=== PATIENT | female | born 1985 | race Caucasian/White ===

== ENCOUNTER 2017-10-24 16:55 | Emergency (ER) | payer MEDICAID ==
[~2017-10-24] VITALS: Ht 142.2 cm; Wt 65.8 kg
[2017-10-24 17:11] VITALS: Ht 142.2 cm; Wt 65.8 kg
[2017-10-24 18:30] LABS: BASOPHIL % 0.3 % (0-2); PLATELET COUNT 252 x10^3mcL (130-400)
[2017-10-24 19:17] VITALS: BP 120/74
== END 2017-10-24 19:17 | disposition home or self-care (01) ==
LOC: ED 16:55
PROVIDERS: Emergency Medicine
DX: O20.0 Threatened abortion (principal); Z3A.00 Weeks of gestation of pregnancy not specified
CPT/HCPCS: 36415

== ENCOUNTER 2017-10-27 16:39 | Emergency (ER) | payer MEDICAID ==
[~2017-10-27] VITALS: Ht 134.6 cm; Wt 54.4 kg
[2017-10-27 16:55] VITALS: Ht 134.6 cm; Wt 54.4 kg
[2017-10-27 21:40] VITALS: BP 108/60
== END 2017-10-27 21:40 | disposition home or self-care (01) ==
LOC: ED 16:39
DX: O36.80X0 Pregnancy with inconclusive fetal viability, not applicable or unspecified (principal); Z3A.00 Weeks of gestation of pregnancy not specified

== ENCOUNTER 2017-11-11 08:04 | Emergency (ER) | payer MEDICAID ==
[~2017-11-11] VITALS: Ht 134.6 cm; Wt 52.2 kg
[2017-11-11 08:12] VITALS: Ht 134.6 cm; Wt 52.2 kg
[2017-11-11 09:38] LABS: BASOPHIL % 0.2 % (0-2); PLATELET COUNT 214 x10^3mcL (130-400)
[2017-11-11 09:39] LABS: RED CELL DISTRIBUTION WIDTH 14.7 % (11.5-14.5)
[2017-11-11 10:12] VITALS: BP 119/60
== END 2017-11-11 10:37 | disposition home or self-care (01) ==
LOC: ED 08:04
PROVIDERS: Emergency Medicine
DX: O20.0 Threatened abortion (principal); Z3A.01 Less than 8 weeks gestation of pregnancy; R05 Cough
CPT/HCPCS: J7030

== ENCOUNTER 2017-11-13 16:48 | Emergency (ER) | payer MEDICAID ==
[~2017-11-13] VITALS: Ht 132.1 cm; Wt 52.6 kg
[2017-11-13 17:02] VITALS: BP 116/68; Ht 132.1 cm; Wt 52.6 kg
== END 2017-11-13 19:13 | disposition home or self-care (01) ==
LOC: ED 16:48
DX: O20.0 Threatened abortion (principal); R05 Cough; Z3A.08 8 weeks gestation of pregnancy

== ENCOUNTER 2018-03-20 18:07 | Emergency (ER) | payer MEDICAID ==
[~2018-03-20] VITALS: Ht 134.6 cm; Wt 53.5 kg
[2018-03-20 18:13] VITALS: Ht 134.6 cm; Wt 53.5 kg
== END 2018-03-20 19:23 | disposition home or self-care (01) ==
LOC: ED 18:07
DX: O36.4XX0 Maternal care for intrauterine death, not applicable or unspecified (principal)
CPT/HCPCS: Q0092

== ENCOUNTER 2018-11-09 08:00 | Emergency (ER) | payer MEDICAID ==
[~2018-11-09] VITALS: Ht 144.8 cm; Wt 59.5 kg
[2018-11-09 08:12] VITALS: Ht 144.8 cm; Wt 59.5 kg
[2018-11-09 10:25] VITALS: BP 129/73
== END 2018-11-09 10:25 | disposition home or self-care (01) ==
LOC: ED 08:00
DX: M54.6 Pain in thoracic spine (principal)
CPT/HCPCS: 72072

== ENCOUNTER 2019-01-12 15:14 | Emergency (ER) | payer MEDICAID ==
[~2019-01-12] VITALS: Ht 144.8 cm; Wt 56.3 kg
[2019-01-12 15:21] VITALS: Ht 144.8 cm; Wt 56.3 kg
[2019-01-12 15:43] LABS: BASOPHIL % 0.3 % (0-2); PLATELET COUNT 204 x10^3mcL (130-400); RED CELL DISTRIBUTION WIDTH 12.7 % (11.5-14.5)
[2019-01-12 15:50] LABS: CALCIUM 8.5 mg/dL (8.5-10.1); CARBON DIOXIDE 23.5 mmol/L (21-32); CHLORIDE SERUM 104 mmol/L (98-107); CREATININE SERUM 0.5 mg/dL (0.6-1.0); GFR1 > 60 mL/min; GLUCOSE SERUM 98 mg/dL (74-106); POTASSIUM SERUM 3.6 mmol/L (3.5-5.1); SODIUM SERUM 140 mmol/L (136-145)
[2019-01-12 15:56] LABS: ALBUMIN 3.6 g/dL (3.4-5.0); ALKALINE PHOSPHATASE 77 U/L (46-116); ALT/SGPT 28 U/L (14-59); AST/SGOT 25 U/L (15-37); BILIRUBIN TOTAL 0.46 mg/dL (0.20-1.00); LIPASE 74 IU/L (73-393); TOTAL PROTEIN, SERUM 7.4 g/dL (6.4-8.2)
[2019-01-12 19:43] VITALS: BP 104/56
== END 2019-01-12 19:43 | disposition home or self-care (01) ==
LOC: ED 15:14
DX: R19.7 Diarrhea, unspecified (principal); R10.9 Unspecified abdominal pain; R11.10 Vomiting, unspecified; Z98.890 Other specified postprocedural states
CPT/HCPCS: J1885; J2405; J7030

== ENCOUNTER 2020-07-13 06:30 | Emergency (ER) | payer MEDICAID ==
[~2020-07-13] VITALS: Ht 149.9 cm; Wt 54.0 kg
[2020-07-13 06:41] VITALS: BP 156/81; Ht 149.9 cm; Wt 54.0 kg
== END 2020-07-13 07:36 | disposition home or self-care (01) ==
LOC: ED 06:30
DX: R30.0 Dysuria (principal)
CPT/HCPCS: 87491; 87591

== ENCOUNTER 2020-08-01 13:00 | Emergency (ER) | payer MEDICAID ==
[~2020-08-01] VITALS: Ht 144.8 cm; Wt 54.2 kg
[2020-08-01 13:44] VITALS: BP 129/85; Ht 144.8 cm; Wt 54.2 kg
== END 2020-08-01 15:33 | disposition home or self-care (01) ==
LOC: ED 13:00
DX: S63.502A Unspecified sprain of left wrist, initial encounter (principal); X50.0XXA Overexertion from strenuous movement or load, initial encounter; Y93.89 Activity, other specified; Y92.89 Other specified places as the place of occurrence of the external cause; Y99.8 Other external cause status
CPT/HCPCS: J1885